=== PATIENT | female | born 1970 | race Caucasian/White ===

== ENCOUNTER 2018-05-30 11:38 | Emergency (ER) | payer SELFPAY ==
[2018-05-30 11:45] VITALS: BP 115/75; PULSE 108; RESP 16; TEMP 36.6; O2SAT 99
[2018-05-30] MEDS: Cephalexin 500 MG CAP PO (12:41)
[2018-05-30] MEDS: Sulfameth/Trimeth DS TAB 1 TAB PO (12:41)
[2018-05-30] MEDS: Lidocaine 1% Multi-Dose 50 ML VIAL (12:42)
[2018-05-30] MEDS: Ketorolac 30 MG/ML VIAL IM (13:02)
--- NOTE | 2018-05-30 13:04 | ED.GENADUL_ITS ---
Discharge Plan Disposition Patient Disposition: HOME Condition: Improving Discharge Details Chief Complaint: Cellulitis Clinical Impression: Abscess or cellulitis of back Primary Care Provider: Eligio Watts ED Provider: Félix Cox Home Meds and New Rx's Prescriptions: New sulfamethoxazole-trimethoprim [Bactrim DS] 800-160 mg tablet 1 tab PO BID 5 Days Qty: 10 RF: 0 cephalexin [Keflex] 500 mg capsule 500 mg PO TID 5 Days Qty: 15 RF: 0 Continued ibuprofen 800 MG tablet 800 mg PO TID Qty: 60 RF: 0 acetaminophen [Tylenol Extra Strength] 500 MG tablet 500 mg PO PRN PRNRF: 0 Discharge Instructions Instructions: Cellulitis (ED) Additional Instructions: Continue to apply warm compresses 4 times daily over the next 4 days. Return immediately for any new or significant worsening of symptoms otherwise follow-up with your primary care provider as needed for reassessment Referrals: Eligio Watts [Primary Care Provider] - Discharge Data Discharge Date/Time-TO BE ENTERED AT DEPARTURE: 05/30/18 13:20 Medical Decision Making Patient presenting to the emergency department for chief complaint of abscess. Patient states approximately 3 days ago she noticed a sore swollen area on her left back that is worsened over the past couple days. She did try to express drainage from it but was unable to get any drainage. She does state over the last 24 hours it is significantly worsened. Patient does state a fever but denies any nausea vomiting, abdominal pain, diarrhea, or other symptoms. Physical exam shows approximately a 3 cm minimally fluctuant abscess on the posterior of the left flank with streaking erythema and induration to the lateral aspect. Ultrasound was utilized to view abscess and there does appear to be a drainable area. Patient gave verbal consent to incision and drainage. Patient tolerated procedure well and was placed up on Keflex and Bactrim for 5 days. For further pain control patient was given ketorolac in the emergency department. Patient states clear understanding to return for new or worsening symptoms and to follow-up with primary care provider as needed for reassessment. After discussion of diagnosis and plan of care patient has no further needs, questions, or concerns and states clear understanding to return to the emergency department for any worsening symptoms. HPI General Mode of arrival: ambulatory . Date/Time Provider Initiated Documentation: 05/30/18 11:40 . Limitations to Documentation: no limitations . Information obtained by: patient and RN notes reviewed . History of Present Illness 48 year old F presents to the emergency department with the chief complaint of Abscess, described as moderate, with intensity rated at 8. and is localized to the back. Patient started experiencing this day(s) (3) and it has been constant. No relieving factors improve symptom(s), No exacerbating factors reported . Patient notes no other symptoms.. Patient did receive the following treatments prior to arrival, none Related Data Home Medications Medication Instructions Recorded Confirmed ibuprofen 800 mg PO TID #60 tablet 06/06/16 05/30/18 acetaminophen [Tylenol Extra 500 mg PO PRN PRN 09/15/16 09/15/16 Strength] cephalexin [Keflex] 500 mg PO TID 5 Days #15 cap 05/30/18 sulfamethoxazole-trimethoprim 1 tab PO BID 5 Days #10 tab 05/30/18 [Bactrim DS] Previous Rx's Medication Instructions Recorded ibuprofen 800 mg PO TID #60 tablet 06/06/16 cephalexin [Keflex] 500 mg PO TID 5 Days #15 cap 05/30/18 sulfamethoxazole-trimethoprim 1 tab PO BID 5 Days #10 tab 05/30/18 [Bactrim DS] Allergies Allergy/AdvReac Type Severity Reaction Status Date / Time No Known Allergies Allergy Unverified 05/30/18 11:44 General Stated Complaint: Cellulitis RAS: 4 Review of Systems Constitutional Denies chills and Denies fever(s) Cardiovascular Denies chest pain Respiratory Denies chest congestion and Denies cough Musculoskeletal Reports as per HPI [facility] Social History Smoking/Tobacco Use Status: Current every day Exam Const General: cooperative, healthy appearing, comfortable and no acute distress Orientation: alert, awake and oriented x3 Resp Effort & Inspection: normal respiratory effort and able to speak in complete sentences Back/Spine/Pelvis Back: erythema, warmth and other (Abscess as noted below ) Back/spine/pelvis image: 1. Abscess with surrounding erythema streaking to the flank Course Vital Signs Temperature 36.6 C 05/30/18 11:45 Pulse 108 H 05/30/18 11:45 Respiratory Rate 16 05/30/18 11:45 Blood Pressure 115/75 05/30/18 11:45 Pulse Oximetry 99 05/30/18 11:45 Temperature 36.6 C 05/30/18 11:45 Temperature Source Temporal Artery Scan 05/30/18 11:45 Pulse 108 H 05/30/18 11:45 Respiratory Rate 16 05/30/18 11:45 Respiratory Effort 05/30/18 11:45 Blood Pressure 115/75 05/30/18 11:45 Pulse Oximetry 99 05/30/18 11:45 Oxygen Delivery Method Room Air 05/30/18 11:45 Oxygen Flow Rate 0 05/30/18 11:45 Pain Level 8 05/30/18 11:45 Procedures Abscess I/D Site: Back Side (if applicable): Left Sedation/analgesia: None Local Anesthetic: Lidocaine 1% Amount of anesthesia used (mL): 7 Technique: Incised with #11 Blade Amount of fluid expressed (mL): 10 Irrigation: Yes Packing used?: None Complications: Pain and Bleeding
[2018-05-30 13:05] VITALS: PULSE 88; TEMP 37.7
[2018-05-30 13:12] VITALS: BP 131/105; PULSE 95; RESP 16; TEMP 37.8; O2SAT 100
== END 2018-05-30 13:20 | disposition home or self-care (01) ==
PROVIDERS: Emergency Provider Nurse Practitioner Family; PCP Family Medicine
DX: L02.212 Cutaneous abscess of back [any part, except buttock and flank] (principal)
CPT/HCPCS: 10060; 96372; J1885

== ENCOUNTER 2019-03-12 06:55 | Emergency (ER) | payer SELFPAY ==
--- NOTE | 2019-03-12 06:57 | W.ED.GENAD ---
Discharge Plan Disposition Patient Disposition: HOME Condition: Good Discharge Details Chief Complaint: Laceration Clinical Impression: Laceration Primary Care Provider: [facility] Provider: Aden Lara Home Meds and New Rx's Prescriptions: No Action ibuprofen 800 MG tablet 800 mg PO TID Qty: 60 RF: 0 acetaminophen [Tylenol Extra Strength] 500 MG tablet 500 mg PO PRN PRNRF: 0 Discharge Instructions Instructions: Laceration (ED), Care For Your Absorbable Stitches (ED) Additional Instructions: 4 absorbable sutures were placed. They will come out on their own. You can return here in 7 to 10 days to have it reassessed for free. Please keep a bandage over your sutures at all times, Do not directly soak the area. Watch for any signs of infection and return if any increasing redness, swelling, pain, drainage. In 2 weeks, after the sutures have come out, begin applying moisturizer to the scar 2-3 times per day for the next 1 to 2 years. Avoid any sun contact and keep the area from getting tanned or sunburn. If you notice any worsening of your symptoms, or any new symptoms such as vomiting, diarrhea, fever, chills, shortness of breath, chest pain, numbness, weakness, or fainting , please return immediately to the emergency department for reevaluation. Please follow up with your primary care provider as soon as possible for reassessment and reevaluation. As always, it was a pleasure participating in your medical care today. Medical Decision Making This is a 48-year-old female who presents for a laceration to her nose. Tetanus is not up-to-date. Earlier this morning the piece of scaffolding hit her nose and causing laceration. Laceration is L-shaped with a length of 1 cm x 1 cm, L-shaped. The patient had no loss of consciousness. No other signs of trauma. Mild tenderness over the nose, potential contusion versus mild break. No significant deformity of the nose otherwise. No clinical indication for CT imaging at this time. No nasal septal hematoma. Patient's tetanus is updated. 4 simple interrupted sutures were placed over the patient's nose, followed by Dermabond for good wound edge reapproximation. Patient tolerated this well. Patient will be discharged home with suture instructions, as well as instructions for follow-up in the next 7 to 10 days for wound reassessment. Discussed nose blowing components, the importance of rest NSAIDs follow-up. I have extensively reviewed the treatment plan and discharge instructions with the patient. I have addressed all patient concerns at this time. The patient was made aware of what symptoms to monitor for that would warrant a return to the emergency department. Discussed the plan with the patient, they demonstrate verbal understanding and agreement with our assessment and plan at this time. HPI General Date/Time Provider Initiated Documentation: 03/12/19 06:56. HPI Narrative: This is a pleasant 48-year-old female who presents today for evaluation of laceration to her nose. Patient was working with scaffolding when some came down and hit her nose. She had no loss of consciousness. She is not on any blood thinners. She came in immediately for reassessment and evaluation. She denies any loss of consciousness. She does have tenderness on her nose. She denies any other complaints at this time. Tetanus is not up-to-date. Related Data Home Medications Medication Instructions Recorded Confirmed ibuprofen 800 mg PO TID #60 tablet 06/06/16 03/12/19 acetaminophen [Tylenol Extra 500 mg PO PRN PRN 09/15/16 03/12/19 Strength] Previous Rx's Medication Instructions Recorded ibuprofen 800 mg PO TID #60 tablet 06/06/16 Allergies Allergy/AdvReac Type Severity Reaction Status Date / Time No Known Allergies Allergy Unverified 03/12/19 07:04 General RAS: 4 Review of Systems All systems reviewed & are unremarkable except as noted in HPI and below PFSH Social History Smoking/Tobacco Use Status: Current every day Alcohol Intake: current Alcohol Intake frequency: 0-2 drinks per day Drug use: Never Substance use type: does not use Do you feel safe at home: Yes Do you feel safe in your relationship?: Yes Exam Narrative Exam Narrative: 1.Const: Well-nourished, Well-developed, appearing stated age 2.Eyes: PERRL, no conjunctival injection, and symmetrical lids. 3.ENT. Notable L shaped laceration over the bridge of the patient's nose. Mild tenderness in this area. Moist MM. Neck: Symmetric, trachea midline, No thyromegaly. There is no evidence of raccoon eyes, spence sign, CSF rhinorrhea, mastoid tenderness, cranial crepitus, hemotympanum, exophthalmos, or hyphema. Patient demonstrates intact dentition with dentures for the upper palate with no signs of tooth avulsion or fracture, no signs of jaw deformity, no evidence of a LeFort's fracture, with an intact palate, nose and orbital region. There is no evidence of a nasal septal hematoma. No proptosis. Jaw closes symmetrically. Airway is clear. 4.CVS: +S1/S2, No murmurs or gallops. Peripheral pulses 2+ and equal in all extremities. Brisk capillary refill in all extremities. 5.RESP: Unlabored respiratory effort. Clear to auscultation bilaterally. No wheezes rales or rhonchi 6.GI: Soft, Nontender/Nondistended, No hepatosplenomegaly. No guarding or rebound. 7.MSK: Normocephalic/Atraumatic, Extremities w/o deformity or ttp No cyanosis or clubbing, Normal movement of all extremities 8.Skin: Warm, Dry. L shaped laceration of the bridge of the patient's nose, horizontal length 1 cm, vertical length traveling downward to 1 cm. No evidence of deep tissue involvement. No significant internal nosebleeding. 9.Neuro: returned item clerk II-XII grossly intact. Sensation grossly intact, no focal neurologic deficits. 10.Psych: (AAO) x3. Appropriate mood and affect Procedures Laceration Laceration 1: Site: face Size (cm): 2 Description: other (Linear L-shaped laceration 1 cm x 1 cm over the bridge of the nose) Depth: simple, single layer Local Anesthetic: Lidocaine 1% Amount of anesthesia used (mL): 3 Pre-repair: wound explored, irrigated extensively and deep structures intact Skin layer closed with: other (Chromic gut) Size (cm): 5-0 Number of sutures: 4 Technique: simple, interrupted
[2019-03-12 07:01] VITALS: BP 134/86; PULSE 91; RESP 18; TEMP 36.6; O2SAT 97
== END 2019-03-12 07:30 | disposition home or self-care (01) ==
PROVIDERS: Emergency Provider Student in an Organized Health Care Education/Training Program
DX: S01.21XA Laceration without foreign body of nose, initial encounter (principal); W22.8XXA Striking against or struck by other objects, initial encounter
CPT/HCPCS: 12011; 90471; 99283